=== PATIENT | male | born 1955 | race Caucasian/White ===

== ENCOUNTER 2024-02-05 09:04 | Emergency (ER) | payer SELFPAY ==
[~2024-02-05] VITALS: Ht 172.7 cm; Wt 78.0 kg
[2024-02-05 09:21] VITALS: BP 124/88; PULSE 76; RESP 16; TEMP 98.3; O2SAT 98
[2024-02-05] MEDS: GABAPENTIN 300 MG CAPSULE PO ONE (09:39)
[2024-02-05] MEDS: ACETAMINOPHEN 500 MG TABLET PO ONE (09:39)
[2024-02-05 09:58] LABS: COVID AG,FIA SOURCE NASAL SWAB
[2024-02-05 10:01] LABS: BASOPHILS % (AUTO) 0.8 % (0.0-2.0); EOSINOPHILS % (AUTO) 3.8 % (1.0-6.0); HEMATOCRIT 40.4 % (41-53); LYMPHOCYTES # (AUTO) 2.5 K/uL (1.0-4.8); LYMPHOCYTES % (AUTO) 25.9 % (22.0-44.0); MEAN CORPUSCULAR HEMOGLOBIN 28.7 pg (26.0-34.0); MEAN CORPUSCULAR HGB CONC 32.2 G/dL (31.0-37.0); MEAN CORPUSCULAR VOLUME 89 fL (80-100); MONOCYTES # (AUTO) 1.7 K/uL (0.1-1.0); MONOCYTES % (AUTO) 17.1 % (2.0-9.0); NEUTROPHILS # (AUTO) 5.1 K/uL (1.8-7.7); NEUTROPHILS % (AUTO) 52.4 % (40.0-70.0); PLATELET COUNT (AUTO) 402 K/uL (150-450); RED BLOOD CELL COUNT(AUTO) 4.53 MIL/uL (4.50-5.90); RED CELL DISTRIBUTION WIDTH 15.7 % (11.5-14.5); WHITE BLOOD COUNT (AUTO) 9.8 K/uL (4.5-11.0)
[2024-02-05 10:07] LABS: ANION GAP 7 mmol/L (8-16); CALCIUM, TOTAL 8.4 mg/dL (8.8-10.5); CARBON DIOXIDE 30 mmol/L (22-29); CHLORIDE 104 mmol/L (98-107); CREATININE 1.03 mg/dL (0.60-1.30); GLOMERULAR FILTR. RATE CALC > 60 mL/min (>60); GLUCOSE,RANDOM 85 mg/dL (70-110); POTASSIUM 4.2 mmol/L (3.5-5.1); SODIUM SERUM 141 mmol/L (136-145); UREA NITROGEN, BLOOD 21 mg/dL (7-18)
[2024-02-05 10:15] LABS: ALCOHOL, BLOOD (SERUM) < 3 mg/dL (0-10)
[2024-02-05 10:19] LABS: SARS-COV2 (COVID) ANTIGEN,FIA Negative (Negative)
[2024-02-06] MEDS ORDERED: TAMS0.4C94 PO (19:39)
[2024-02-06] MEDS ORDERED: QUET25TA36 PO (19:39)
[2024-02-06] MEDS ORDERED: MELA1TAB28 PO (19:39)
[2024-02-06] MEDS ORDERED: OS500 PO (19:39)
[2024-02-06] MEDS ORDERED: DOCU-412 PO (19:39)
[2024-02-06] MEDS ORDERED: FOLI-130 PO (19:39)
[2024-02-06] MEDS ORDERED: THIA100T80 PO (19:39)
[2024-02-06] MEDS ORDERED: ATOR40TA71 PO (19:39)
[2024-02-06] MEDS ORDERED: SENN-376 PO (19:39)
[2024-02-06] MEDS ORDERED: GABA-1181 PO (19:39)
[2024-02-06] MEDS ORDERED: AMLO10TA55 PO (19:39)
[2024-02-06] MEDS ORDERED: QUET25TA PO (19:39)
[2024-02-06] MEDS ORDERED: METO-408 PO (19:39)
[2024-02-06] MEDS ORDERED: MULT-248 PO (19:39)
== END 2024-02-05 12:03 ==
LOC: EMS 09:04
DX: F20.9 Schizophrenia, unspecified (principal); E11.9 Type 2 diabetes mellitus without complications; F10.20 Alcohol dependence, uncomplicated; I11.0 Hypertensive heart disease with heart failure; Z20.822 Contact with and (suspected) exposure to COVID-19
CPT/HCPCS: 99283; 87426; 80048; 85025; 36415; G0480

== ENCOUNTER 2024-02-06 18:15 | Inpatient (IN) | payer MEDICARE, MEDICAID ==
[~2024-02-06] VITALS: Ht 162.6 cm; Wt 73.6 kg
[2024-02-06] MEDS ORDERED: ATOR40TA71 PO (19:39)
[2024-02-06] MEDS ORDERED: TAMS0.4C94 PO (19:39)
[2024-02-06] MEDS ORDERED: MULT-248 PO (19:39)
[2024-02-06] MEDS ORDERED: METO-408 PO (19:39)
[2024-02-06] MEDS ORDERED: FOLI-130 PO (19:39)
[2024-02-06] MEDS ORDERED: QUET25TA36 PO (19:39)
[2024-02-06] MEDS ORDERED: DOCU-412 PO (19:39)
[2024-02-06] MEDS ORDERED: QUET25TA PO (19:39)
[2024-02-06] MEDS ORDERED: AMLO10TA55 PO (19:39)
[2024-02-06] MEDS ORDERED: OS500 PO (19:39)
[2024-02-06] MEDS ORDERED: GABA-1181 PO (19:39)
[2024-02-06] MEDS ORDERED: THIA100T80 PO (19:39)
[2024-02-06] MEDS ORDERED: SENN-376 PO (19:39)
[2024-02-06] MEDS ORDERED: MELA1TAB28 PO (19:39)
[2024-02-06 20:04] LABS: BASOPHILS % (AUTO) 0.5 % (0.0-2.0); EOSINOPHILS % (AUTO) 3.2 % (1.0-6.0); HEMATOCRIT 38.1 % (41-53); HEMOGLOBIN 12.2 g/dL (13.5-17.5); LYMPHOCYTES # (AUTO) 2.4 K/uL (1.0-4.8); LYMPHOCYTES % (AUTO) 22.3 % (22.0-44.0); MEAN CORPUSCULAR HEMOGLOBIN 28.4 pg (26.0-34.0); MEAN CORPUSCULAR VOLUME 89 fL (80-100); MONOCYTES # (AUTO) 1.1 K/uL (0.1-1.0); MONOCYTES % (AUTO) 10.1 % (2.0-9.0); NEUTROPHILS # (AUTO) 6.8 K/uL (1.8-7.7); NEUTROPHILS % (AUTO) 63.9 % (40.0-70.0); PLATELET COUNT (AUTO) 345 K/uL (150-450); RED BLOOD CELL COUNT(AUTO) 4.29 MIL/uL (4.50-5.90); RED CELL DISTRIBUTION WIDTH 15.8 % (11.5-14.5); WHITE BLOOD COUNT (AUTO) 10.6 K/uL (4.5-11.0)
[2024-02-06 20:15] LABS: ANION GAP 7 mmol/L (8-16); CALCIUM, TOTAL 8.3 mg/dL (8.8-10.5); CARBON DIOXIDE 29 mmol/L (22-29); CHLORIDE 106 mmol/L (98-107); CREATININE 0.84 mg/dL (0.60-1.30); GLOMERULAR FILTR. RATE CALC > 60 mL/min (>60); GLUCOSE,RANDOM 122 mg/dL (70-110); POTASSIUM 4.2 mmol/L (3.5-5.1); SODIUM SERUM 141 mmol/L (136-145); UREA NITROGEN, BLOOD 18 mg/dL (7-18)
[2024-02-06 20:20] LABS: ALCOHOL, BLOOD (SERUM) < 3 mg/dL (0-10)
[2024-02-06 23:01] LABS: COVID AG,FIA SOURCE NASAL SWAB
[2024-02-06 23:30] LABS: SARS-COV2 (COVID) ANTIGEN,FIA Negative (Negative)
[2024-02-06 23:41] LABS: AMPHET/METH SCREEN,URINE NEGATIVE (NEGATIVE); BARBITURATE SCREEN, URINE NEGATIVE (NEGATIVE); BENZODIAZEPINES SCREEN,URINE NEGATIVE (NEGATIVE); CANNABINOID SCREEN,URINE NEGATIVE (NEGATIVE); COCAINE SCREEN,URINE NEGATIVE (NEGATIVE); METHADONE SCREEN, URINE NEGATIVE (NEGATIVE); OPIATE SCREEN,URINE NEGATIVE (NEGATIVE); PHENCYCLIDINE SCREEN,URINE NEGATIVE (NEGATIVE)
[2024-02-06 23:43] LABS: ALCOHOL, URINE DRUG SCREEN NEGATIVE (NEGATIVE)
[2024-02-07] MEDS ORDERED: MAG HYDROX/ALUMINUM HYD/SIMETH ES 30 ML SUSPENSION UDCUP PO PRN (01:30)
[2024-02-07] MEDS ORDERED: PROMETHAZINE HCL 25 MG TABLET PO PRN (01:30)
[2024-02-07] MEDS ORDERED: ACETAMINOPHEN 325 MG TABLET PO PRN (01:30)
[2024-02-07] MEDS ORDERED: GuaiFENesin/D-METHORPHAN [SUGAR-FREE] 200-20MG/10 ML SYRUP UDCUP PO PRN (01:30)
[2024-02-07] MEDS ORDERED: MAGNESIUM HYDROXIDE SUSPENSION 30 ML UDCUP PO PRN (01:30)
[2024-02-07] MEDS ORDERED: LOPERAMIDE HCL 2 MG CAPSULE PO PRN (01:30)
[2024-02-07] MEDS ORDERED: QUEtiapine FUMARATE 100 MG TABLET PO PRN (01:30)
[2024-02-07] MEDS: ZOLPIDEM TARTRATE 10 MG TABLET PO PRN (02:30)
[2024-02-07] MEDS: LORazepam 1 MG TABLET PO PRN (02:30)
[2024-02-07] MEDS: MULTIVITAMINS WITH MINERALS, THERAPEUTIC TABLET PO SCH (09:53)
[2024-02-07] MEDS: FOLIC ACID 1 MG TABLET PO SCH (09:53)
[2024-02-07] MEDS: THIAMINE 100 MG TABLET PO SCH (09:53)
[2024-02-07 14:13] VITALS: O2SAT 96
[2024-02-07] MEDS: TUBERCULIN, PURIFIED PROTEIN DERIVATIVE 5 TU/0.1 ML SYRINGE ID ONE (16:00)
[2024-02-07 20:30] LABS: GLUCOMETER DEV NAME(LOC) BV2X.3; GLUCOSE,POINT OF CARE 108 MG/DL (70-110)
[2024-02-07] MEDS: BREXPIPRAZOLE 0.25 MG TABLET PO SCH (20:44)
[2024-02-07] MEDS ORDERED: BREXPIPRAZOLE 0.25 MG TABLET PO SCH (21:00)
[2024-02-08 09:21] LABS: HEMOGLOBIN A1C 5.3 % (3.8-5.6)
[2024-02-08 09:28] LABS: CHOL/HDL RATIO 2.2 (4.2-7.3); THYROID STIMULATING HORMONE 4.34 uIU/mL (0.36-3.74)
[2024-02-08 20:15] VITALS: BP 132/80; PULSE 72; RESP 18; TEMP 97.4; O2SAT 95
[2024-02-08] MEDS ORDERED: DOCUSATE SODIUM 250 MG CAPSULE PO PRN (23:30)
[2024-02-08] MEDS ORDERED: SENNOSIDES 8.6 MG TABLET PO PRN (23:30)
[2024-02-09 02:04] VITALS: BP 123/75; PULSE 78; RESP 18; TEMP 95.8; O2SAT 94
[2024-02-09] MEDS: HydrOXYzine PAMOATE 50 MG CAPSULE PO PRN (02:16)
[2024-02-09] MEDS: FOLIC ACID 1 MG TABLET PO SCH (08:17)
[2024-02-09] MEDS: AmLODIPine BESYLATE 10 MG TABLET PO SCH (08:17)
[2024-02-09] MEDS: DIVALPROEX SODIUM 500 MG ER TABLET PO SCH (08:17)
[2024-02-09] MEDS: CALCIUM [CALCIUM CARB 1250MG] 500 MG TABLET PO SCH (08:17)
[2024-02-09] MEDS: MODAFINIL 100 MG TABLET PO SCH (08:17)
[2024-02-09] MEDS: ATORVASTATIN CALCIUM 40 MG TABLET PO SCH (08:18)
[2024-02-09] MEDS: THIAMINE 100 MG TABLET PO SCH (08:18)
[2024-02-09] MEDS: METOPROLOL SUCCINATE 25 MG ER TABLET PO SCH (08:18)
[2024-02-09] MEDS: ETHYL ALCOHOL 62% ANTISEPTIC NASAL SANITIZER 0.6 ML AMPUL NASAL SCH (20:55)
[2024-02-09] MEDS: TAMSULOSIN HCL 0.4 MG CAPSULE PO SCH (20:55)
[2024-02-09] MEDS: CHLORHEXIDINE GLUCONATE 2% TOWELETTE [2'S/6'S] TP SCH (21:07)
[2024-02-09 21:30] VITALS: RESP 18
[2024-02-10] MEDS: INFLUENZA VIRUS VACCINE TVS (6MO+) 2024-25/PF 45 MCG/0.5 ML SYRINGE IM. ONE (13:43)
[2024-02-10] MEDS: PNEUMOCOCCAL VACCINE POLYVALENT 0.5 ML SYRINGE [PPSV23] IM. ONE (13:44)
[2024-02-10 20:46] VITALS: BP 140/87; PULSE 85; RESP 19; TEMP 97.7; O2SAT 98
[2024-02-11 09:24] VITALS: BP 129/80; PULSE 72; RESP 18; TEMP 97.6; O2SAT 96
[2024-02-11 20:03] VITALS: BP 115/76; PULSE 74; RESP 18; TEMP 96.8; O2SAT 95
[2024-02-12 08:03] VITALS: BP 108/84; PULSE 90; RESP 18; TEMP 98.1; O2SAT 98
[2024-02-12 20:00] VITALS: BP 116/76; PULSE 76; RESP 18; TEMP 98.1; O2SAT 98
[2024-02-13 08:01] VITALS: RESP 16
[2024-02-13 09:39] LABS: FREE T4 (FREE THYROXINE) 1.05 ng/dL (0.76-1.46); THYROID STIMULATING HORMONE 3.31 uIU/mL (0.36-3.74)
[2024-02-13] MEDS ORDERED: MELA5TAB40 PO (16:47)
[2024-02-13] MEDS ORDERED: DIVA-153 PO (16:47)
[2024-02-13] MEDS ORDERED: MODA100T65 PO (16:47)
[2024-02-13] MEDS ORDERED: BREX0.25 PO (16:47)
[2024-02-13 20:01] VITALS: BP 135/88; PULSE 80; RESP 16; TEMP 98.6; O2SAT 100
[2024-02-14 08:22] VITALS: BP 135/73; PULSE 90; RESP 18; TEMP 97.9; O2SAT 100
[2024-02-14 20:09] VITALS: BP 124/77; PULSE 84; RESP 18; TEMP 97.9; O2SAT 95
[2024-02-15] MEDS: MELATONIN 5 MG TABLET PO PRN (02:06)
[2024-02-15 08:14] VITALS: BP 133/85; PULSE 96; RESP 16; TEMP 97.4; O2SAT 97
[2024-02-15] MEDS ORDERED: ATOR40TA28 PO (09:03)
[2024-02-15] MEDS ORDERED: AMLO-258 PO (09:03)
[2024-02-15] MEDS ORDERED: METO25XL PO (09:04)
[2024-02-15] MEDS ORDERED: TAMS0.4C94 PO (09:05)
== END 2024-02-15 11:40 | DRG 885 ==
LOC: EMS 18:15 → B2X 02-07 15:16
PROVIDERS: ADMIT Psychiatry & Neurology Psychiatry; ATTEND Psychiatry & Neurology Psychiatry
PROC: GZHZZZZ Group Psychotherapy (ICD-10-PCS; principal; 2024-02-08)
PROC: GZ58ZZZ Individual Psychotherapy, Cognitive-Behavioral (ICD-10-PCS; 2024-02-08)
DX: F25.0 Schizoaffective disorder, bipolar type (principal); I11.0 Hypertensive heart disease with heart failure; I62.00 Nontraumatic subdural hemorrhage, unspecified; E51.2 Wernicke's encephalopathy; F17.200 Nicotine dependence, unspecified, uncomplicated; E11.9 Type 2 diabetes mellitus without complications; Z20.822 Contact with and (suspected) exposure to COVID-19; I25.2 Old myocardial infarction; I50.9 Heart failure, unspecified; E03.9 Hypothyroidism, unspecified; D64.9 Anemia, unspecified; F10.20 Alcohol dependence, uncomplicated; E78.00 Pure hypercholesterolemia, unspecified; N40.0 Benign prostatic hyperplasia without lower urinary tract symptoms
CPT/HCPCS: 80048; 80061; 80164; 80307; 82962; 83036; 84439; 84443; 85025; 86592; 87081; 87481; 99285; G0480

== ENCOUNTER 2024-03-07 00:45 | Emergency (ER) | payer MEDICARE, MEDICAID ==
[~2024-03-07] VITALS: Ht 170.2 cm; Wt 75.0 kg
[~2024-03-07 00:45] MED LIST: AMLO-258 PO; ATOR40TA28 PO; BREX0.25 PO; DIVA-153 PO; MELA5TAB40 PO; METO25XL PO; MODA100T65 PO; OS500 PO; TAMS0.4C94 PO
[2024-03-07 02:04] VITALS: TEMP 98.3
[2024-03-07] MEDS: LORazepam 1 MG TABLET PO ONE ×2 (03:30→04:34)
[2024-03-07 07:22] VITALS: BP 128/74; PULSE 75; RESP 16; O2SAT 97
== END 2024-03-07 08:41 ==
LOC: EMS 00:46
DX: Z04.3 Encounter for examination and observation following other accident (principal); E11.9 Type 2 diabetes mellitus without complications; I11.0 Hypertensive heart disease with heart failure; I50.9 Heart failure, unspecified; R51.9 Headache, unspecified; E78.00 Pure hypercholesterolemia, unspecified; F20.9 Schizophrenia, unspecified; Z79.899 Other long term (current) drug therapy; W19.XXXA Unspecified fall, initial encounter; Y93.89 Activity, other specified; Y92.89 Other specified places as the place of occurrence of the external cause; Y99.8 Other external cause status
CPT/HCPCS: 70450; 72125; 99285

== ENCOUNTER 2024-03-14 18:37 | Inpatient (IN) | payer MEDICARE, MEDICAID ==
[~2024-03-14] VITALS: Ht 170.2 cm; Wt 75.0 kg
[2024-03-14 19:22] LABS: BASOPHILS % (AUTO) 0.6 % (0.0-2.0); EOSINOPHILS % (AUTO) 0.9 % (1.0-6.0); HEMATOCRIT 42.5 % (41-53); HEMOGLOBIN 13.5 g/dL (13.5-17.5); LYMPHOCYTES # (AUTO) 2.5 K/uL (1.0-4.8); LYMPHOCYTES % (AUTO) 21.8 % (22.0-44.0); MEAN CORPUSCULAR HEMOGLOBIN 27.8 pg (26.0-34.0); MEAN CORPUSCULAR HGB CONC 31.7 G/dL (31.0-37.0); MEAN CORPUSCULAR VOLUME 88 fL (80-100); MONOCYTES # (AUTO) 1.8 K/uL (0.1-1.0); MONOCYTES % (AUTO) 16.2 % (2.0-9.0); NEUTROPHILS # (AUTO) 6.9 K/uL (1.8-7.7); NEUTROPHILS % (AUTO) 60.5 % (40.0-70.0); PLATELET COUNT (AUTO) 294 K/uL (150-450); RED BLOOD CELL COUNT(AUTO) 4.85 MIL/uL (4.50-5.90); RED CELL DISTRIBUTION WIDTH 17.9 % (11.5-14.5); WHITE BLOOD COUNT (AUTO) 11.3 K/uL (4.5-11.0)
[2024-03-14 19:37] LABS: LACTIC ACID 0.7 mmol/L (0.4-2.0)
[2024-03-14 19:43] LABS: ANION GAP 11 mmol/L (8-16); CARBON DIOXIDE 28 mmol/L (22-29); CHLORIDE 100 mmol/L (98-107); CREATININE 1.15 mg/dL (0.60-1.30); GLOMERULAR FILTR. RATE CALC > 60 mL/min (>60); GLUCOSE,RANDOM 89 mg/dL (70-110); POTASSIUM 4.2 mmol/L (3.5-5.1); SODIUM SERUM 139 mmol/L (136-145); UREA NITROGEN, BLOOD 15 mg/dL (7-18)
[2024-03-14 20:00] LABS: APPEARANCE,URINE CLEAR (CLEAR); BILIRUBIN,URINE NEGATIVE (NEGATIVE); COLOR,URINE YELLOW (YELLOW); GLUCOSE, URINE (UA) NEGATIVE (NEGATIVE); LEUKOCYTE ESTERASE ,URINE NEGATIVE (NEGATIVE); NITRATE,URINE NEGATIVE (NEGATIVE); OCCULT BLOOD,URINE NEGATIVE (NEGATIVE); PH,URINE 7.5 (5.0-8.0); PH,URINE DRUG SCREEN 7.5 (5.0-8.0); PROTEIN,URINE NEGATIVE (NEGATIVE); SPECIFIC GRAVITIY, URINE 1.014 (1.003-1.030); UROBILINOGEN,URINE <=1.0 mg/dL (<=1.0)
[2024-03-14 20:00] LABS: PROTHROMBIN TIME 11.3 SEC (9.4-11.6)
[2024-03-14 20:01] LABS: ALCOHOL, URINE DRUG SCREEN NEGATIVE (NEGATIVE); AMPHET/METH SCREEN,URINE NEGATIVE (NEGATIVE); BARBITURATE SCREEN, URINE NEGATIVE (NEGATIVE); BENZODIAZEPINES SCREEN,URINE NEGATIVE (NEGATIVE); CANNABINOID SCREEN,URINE NEGATIVE (NEGATIVE); COCAINE SCREEN,URINE NEGATIVE (NEGATIVE); METHADONE SCREEN, URINE NEGATIVE (NEGATIVE); OPIATE SCREEN,URINE NEGATIVE (NEGATIVE); PHENCYCLIDINE SCREEN,URINE NEGATIVE (NEGATIVE)
[2024-03-14 20:02] LABS: ALANINE AMINOTRANSFERASE 36 U/L (12-78); ALKALINE PHOSPHATASE 80 U/L (46-116); ASPARTATE AMINOTRANSFERASE 29 U/L (15-37); BILIRUBIN,TOTAL 0.4 mg/dL (0.1-1.0); CREATINE KINASE, TOTAL ONLY 125 U/L (39-308); TOTAL PROTEIN, SERUM 7.2 g/dL (6.4-8.2); VALPROIC ACID 93 mcg/mL (50-100)
[2024-03-14 20:05] LABS: TROPONIN I-HIGH SENSITIVITY 5 ng/L (<76)
[2024-03-14] MEDS: MAGNESIUM SULFATE 2 GM, MVI, ADULT NO.1 WITH VIT K 10 ML, THIAMINE 100 MG, FOLIC ACID 1... IV ONE (21:07)
[2024-03-15] MEDS ORDERED: BISACODYL 10 MG RECTAL RECTAL SUPPOSITORY PR PRN (05:45)
[2024-03-15] MEDS ORDERED: IPRATROPIUM BROMIDE 0.5 MG/2.5 ML NEB SOLUTION NEB PRN (05:45)
[2024-03-15] MEDS ORDERED: ACETAMINOPHEN 325 MG TABLET PO PRN (05:45)
[2024-03-15] MEDS ORDERED: ALBUTEROL SULFATE 2.5 MG/0.5 ML NEB SOLUTION NEB PRN (05:45)
[2024-03-15] MEDS ORDERED: ZOLPIDEM TARTRATE 5 MG TABLET PO PRN (05:45)
[2024-03-15] MEDS ORDERED: MORPHINE SULFATE 2 MG/ML SYRINGE IVP PRN (05:45)
[2024-03-15] MEDS ORDERED: HYDROCODONE/ACETAMINOPHEN 5-325 MG TABLET PO PRN (05:45)
[2024-03-15] MEDS ORDERED: ONDANSETRON HCL 4 MG/2 ML VIAL IVP PRN (05:45)
[2024-03-15 07:25] LABS: GLUCOMETER DEV NAME(LOC) ER.7; GLUCOSE,POINT OF CARE 69 MG/DL (70-110)
[2024-03-15] MEDS: HEPARIN SODIUM,PORCINE 5,000 UNITS/ML VIAL SQ SCH (08:00)
[2024-03-15] MEDS: DIVALPROEX SODIUM 500 MG ER TABLET PO SCH (09:00)
[2024-03-15] MEDS: CALCIUM [CALCIUM CARB 1250MG] 500 MG TABLET PO SCH (09:00)
[2024-03-15 09:41] VITALS: BP 124/56; PULSE 72; RESP 19; TEMP 98.2; O2SAT 97
[2024-03-15 11:57] LABS: ANION GAP 8 mmol/L (8-16); CARBON DIOXIDE 29 mmol/L (22-29); CHLORIDE 103 mmol/L (98-107); CREATININE 0.85 mg/dL (0.60-1.30); GLOMERULAR FILTR. RATE CALC > 60 mL/min (>60); GLUCOSE,RANDOM 90 mg/dL (70-110); POTASSIUM 3.6 mmol/L (3.5-5.1); SODIUM SERUM 140 mmol/L (136-145); UREA NITROGEN, BLOOD 14 mg/dL (7-18)
[2024-03-15 12:01] LABS: HEMOGLOBIN 13.9 g/dL (13.5-17.5); MEAN CORPUSCULAR HEMOGLOBIN 28.2 pg (26.0-34.0); MEAN CORPUSCULAR HGB CONC 32.3 G/dL (31.0-37.0); MEAN CORPUSCULAR VOLUME 88 fL (80-100); PLATELET COUNT (AUTO) 302 K/uL (150-450); RED BLOOD CELL COUNT(AUTO) 4.91 MIL/uL (4.50-5.90); RED CELL DISTRIBUTION WIDTH 17.7 % (11.5-14.5)
[2024-03-15 12:03] LABS: ALANINE AMINOTRANSFERASE 36 U/L (12-78); ALKALINE PHOSPHATASE 78 U/L (46-116); ASPARTATE AMINOTRANSFERASE 29 U/L (15-37); BILIRUBIN,TOTAL 0.3 mg/dL (0.1-1.0)
[2024-03-15 12:18] LABS: BAND NEUTROPHILS % (MANUAL) 0 % (0-5)
[2024-03-15] MEDS: ATORVASTATIN CALCIUM 40 MG TABLET PO SCH (12:39)
[2024-03-15] MEDS: AmLODIPine BESYLATE 10 MG TABLET PO SCH (12:39)
[2024-03-15] MEDS: PANTOPRAZOLE SODIUM 40 MG DR TABLET PO SCH (12:39)
[2024-03-15] MEDS: METOPROLOL SUCCINATE 25 MG ER TABLET PO SCH (12:40)
[2024-03-15 13:04] LABS: LYMPHOCYTES % (MANUAL) 29 % (22-44); MONOCYTES % (MANUAL) 21 % (2-9); SEGMENTED NEUTROPHILS % 50 % (40-70); TOTAL CELLS COUNTED 100
[2024-03-15 13:10] LABS: GLUCOMETER DEV NAME(LOC) 6N.1B; GLUCOSE,POINT OF CARE 87 MG/DL (70-110)
[2024-03-15 17:42] VITALS: BP 130/61; PULSE 75; RESP 18; TEMP 98; O2SAT 98
[2024-03-15 18:01] LABS: GLUCOMETER DEV NAME(LOC) 6N.2B; GLUCOSE,POINT OF CARE 91 MG/DL (70-110)
[2024-03-15 19:38] VITALS: BP 142/79; PULSE 76; RESP 14; TEMP 98; O2SAT 98
[2024-03-15] MEDS: TAMSULOSIN HCL 0.4 MG CAPSULE PO SCH (20:10)
[2024-03-15] MEDS: BREXPIPRAZOLE 0.25 MG TABLET PO SCH (20:10)
[2024-03-15] MEDS: MELATONIN 5 MG TABLET PO PRN (23:00)
[2024-03-16] MEDS: LORazepam 2 MG/ML VIAL IVP PRN (00:14)
[2024-03-16 02:26] LABS: GLUCOMETER DEV NAME(LOC) 6N.2B; GLUCOSE,POINT OF CARE 91 MG/DL (70-110)
[2024-03-16 03:50] VITALS: BP 142/89; PULSE 91; RESP 16; TEMP 97.8; O2SAT 95
[2024-03-16 07:08] VITALS: BP 147/103; PULSE 83; RESP 18; TEMP 98.4; O2SAT 96
[2024-03-16 14:31] LABS: GLUCOMETER DEV NAME(LOC) 6N.1B; GLUCOSE,POINT OF CARE 68 MG/DL (70-110)
[2024-03-16] MEDS: DEXTROSE 5%-0.45% SODIUM CHL 1,000 ML IV SCH (15:15)
[2024-03-16 15:43] VITALS: BP 119/93; PULSE 82; RESP 18; TEMP 97.6; O2SAT 96
[2024-03-16 21:20] VITALS: BP 128/68; PULSE 76; RESP 17; TEMP 97.5; O2SAT 95
[2024-03-17 05:12] VITALS: BP 137/87; PULSE 79; RESP 18; TEMP 98.3; O2SAT 99
[2024-03-17 08:35] VITALS: BP 131/97; PULSE 83; RESP 20; TEMP 98.4; O2SAT 96
[2024-03-17 18:42] VITALS: BP 128/70; PULSE 80; RESP 20; TEMP 98.1; O2SAT 94
[2024-03-17 20:33] VITALS: BP 140/94; PULSE 76; RESP 20; TEMP 98.1; O2SAT 95
[2024-03-18 05:05] VITALS: BP 123/67; PULSE 92; RESP 20; TEMP 97.9; O2SAT 99
[2024-03-18 11:31] LABS: BASOPHILS % (AUTO) 0.5 % (0.0-2.0); HEMATOCRIT 42.3 % (41-53); HEMOGLOBIN 13.9 g/dL (13.5-17.5); LYMPHOCYTES # (AUTO) 3.1 K/uL (1.0-4.8); MEAN CORPUSCULAR HEMOGLOBIN 28.5 pg (26.0-34.0); MEAN CORPUSCULAR HGB CONC 32.7 G/dL (31.0-37.0); MEAN CORPUSCULAR VOLUME 87 fL (80-100); MONOCYTES # (AUTO) 1.4 K/uL (0.1-1.0); MONOCYTES % (AUTO) 16.7 % (2.0-9.0); NEUTROPHILS # (AUTO) 3.9 K/uL (1.8-7.7); NEUTROPHILS % (AUTO) 44.8 % (40.0-70.0); PLATELET COUNT (AUTO) 296 K/uL (150-450); RED BLOOD CELL COUNT(AUTO) 4.87 MIL/uL (4.50-5.90); RED CELL DISTRIBUTION WIDTH 17.6 % (11.5-14.5); WHITE BLOOD COUNT (AUTO) 8.7 K/uL (4.5-11.0)
[2024-03-18 11:41] LABS: ANION GAP 8 mmol/L (8-16); CALCIUM, TOTAL 8.7 mg/dL (8.8-10.5); CARBON DIOXIDE 27 mmol/L (22-29); CHLORIDE 104 mmol/L (98-107); CREATININE 0.93 mg/dL (0.60-1.30); GLOMERULAR FILTR. RATE CALC > 60 mL/min (>60); GLUCOSE,RANDOM 97 mg/dL (70-110); POTASSIUM 3.7 mmol/L (3.5-5.1); SODIUM SERUM 139 mmol/L (136-145); UREA NITROGEN, BLOOD 11 mg/dL (7-18)
[2024-03-18 11:47] LABS: ALANINE AMINOTRANSFERASE 38 U/L (12-78); ALBUMIN 2.9 g/dL (3.4-5.0); ALKALINE PHOSPHATASE 74 U/L (46-116); ASPARTATE AMINOTRANSFERASE 27 U/L (15-37); BILIRUBIN,TOTAL 0.3 mg/dL (0.1-1.0); TOTAL PROTEIN, SERUM 6.9 g/dL (6.4-8.2)
[2024-03-18 19:28] VITALS: BP 108/91; PULSE 75; RESP 18; TEMP 98.4; O2SAT 98
[2024-03-19 03:39] VITALS: BP 116/77; PULSE 76; RESP 18; TEMP 98.5; O2SAT 97
[2024-03-19 08:16] VITALS: BP 128/88; PULSE 88; RESP 17; TEMP 98.3; O2SAT 96
[2024-03-19] MEDS: ARIPiprazole 5 MG TABLET PO SCH (13:22)
[2024-03-19 14:23] VITALS: BP 125/87; PULSE 81; RESP 18; TEMP 98.7; O2SAT 97
[2024-03-19 17:33] VITALS: RESP 18
[2024-03-19 20:45] VITALS: BP 141/94; PULSE 65; RESP 20; O2SAT 100
[2024-03-20 04:30] VITALS: BP 125/77; PULSE 78; RESP 20; TEMP 97.8; O2SAT 96
[2024-03-20 07:46] VITALS: BP 100/51; PULSE 65; RESP 18; TEMP 98.2; O2SAT 99
[2024-03-20 16:16] VITALS: BP 119/73; PULSE 63; RESP 18; TEMP 98.3; O2SAT 97
[2024-03-20 19:30] VITALS: BP 117/80; PULSE 79; RESP 18; TEMP 98.4; O2SAT 98
[2024-03-21 04:00] VITALS: BP 120/84; PULSE 85; RESP 18; TEMP 97.7; O2SAT 96
[2024-03-21 08:38] VITALS: BP 136/88; PULSE 97; RESP 18; TEMP 98.3; O2SAT 92
[2024-03-21 16:02] VITALS: BP 122/89; PULSE 79; RESP 17; TEMP 98.2; O2SAT 98
[2024-03-21 19:20] VITALS: BP 141/86; PULSE 76; RESP 18; TEMP 98.2; O2SAT 97
[2024-03-22 05:00] VITALS: BP 141/91; PULSE 82; RESP 19; TEMP 98.1; O2SAT 97
[2024-03-22 08:14] VITALS: BP 136/98; PULSE 84; RESP 20; TEMP 97.7; O2SAT 96
[2024-03-22] MEDS: MAGNESIUM HYDROXIDE SUSPENSION 30 ML UDCUP PO PRN (15:41)
[2024-03-22] MEDS ORDERED: ARIP5TAB37 PO (19:42)
[2024-03-22] MEDS ORDERED: PANT-31 PO (19:43)
[2024-03-22] MEDS ORDERED: BISA10SU11 PR (19:44)
[2024-03-22] MEDS ORDERED: ACET-2247 PO (19:44)
[2024-03-22] MEDS ORDERED: ZOLP-280 PO (19:46)
[2024-03-22] MEDS ORDERED: MAGN-169 PO (19:46)
[2024-03-22 20:44] VITALS: BP 127/86; PULSE 76; RESP 19; TEMP 98; O2SAT 97
[2024-03-22 23:22] LABS: COVID AG,FIA SOURCE NASAL SWAB
[2024-03-22 23:46] LABS: SARS-COV2 (COVID) ANTIGEN,FIA Negative (Negative)
== END 2024-03-23 00:45 | DRG 71 ==
LOC: EMS 18:37 → EDH 03-15 05:58 → 6S 03-15 09:09
PROVIDERS: ADMIT Hospitalist; ATTEND Hospitalist
PROC: GZ52ZZZ Individual Psychotherapy, Cognitive (ICD-10-PCS; principal; 2024-03-20)
DX: G93.40 Encephalopathy, unspecified (principal); E44.0 Moderate protein-calorie malnutrition; F20.0 Paranoid schizophrenia; F99 Mental disorder, not otherwise specified; Z20.822 Contact with and (suspected) exposure to COVID-19; D72.829 Elevated white blood cell count, unspecified; N40.0 Benign prostatic hyperplasia without lower urinary tract symptoms; I11.0 Hypertensive heart disease with heart failure; E11.9 Type 2 diabetes mellitus without complications; E78.00 Pure hypercholesterolemia, unspecified; E86.0 Dehydration; F10.20 Alcohol dependence, uncomplicated; Z79.899 Other long term (current) drug therapy; Z68.25 Body mass index [BMI] 25.0-25.9, adult; I50.9 Heart failure, unspecified
CPT/HCPCS: 51702; 70450; 71045; 80048; 80053; 80076; 80164; 80307; 81003; 82140; 82550; 82962; 83605; 84484; 85025; 85610; 85730; 87081; 92610; 93005; 93306; 99291; J1644; J2060; J3411; J3475; J3490; J7030; 36415-L1; 36415-TC

== ENCOUNTER 2024-03-21 15:24 | Inpatient (IN) | payer MEDICARE, MEDICAID ==
[~2024-03-21 15:24] MED LIST changes: -MODA100T65 PO
[2024-03-22] MEDS ORDERED: ARIP5TAB37 PO (19:42)
[2024-03-22] MEDS ORDERED: PANT-31 PO (19:43)
[2024-03-22] MEDS ORDERED: ACET-2247 PO (19:44)
[2024-03-22] MEDS ORDERED: BISA10SU11 PR (19:44)
[2024-03-22] MEDS ORDERED: MAGN-169 PO (19:46)
[2024-03-22] MEDS ORDERED: ZOLP-280 PO (19:46)
[2024-03-23] MEDS ORDERED: ZOLPIDEM TARTRATE 10 MG TABLET PO PRN (01:15)
[2024-03-23 02:27] VITALS: BP 111/73; PULSE 89; RESP 16; TEMP 97.2; O2SAT 97
[2024-03-23 10:31] VITALS: BP 105/75; PULSE 79; RESP 19; TEMP 97.5; O2SAT 99
[2024-03-23] MEDS: ARIPiprazole 5 MG TABLET PO SCH (10:56)
[2024-03-23] MEDS: THIAMINE 100 MG TABLET PO SCH (10:57)
[2024-03-23] MEDS: METOPROLOL SUCCINATE 25 MG ER TABLET PO SCH (10:57)
[2024-03-23] MEDS: AmLODIPine BESYLATE 10 MG TABLET PO SCH (10:57)
[2024-03-23] MEDS: FOLIC ACID 1 MG TABLET PO SCH (10:57)
[2024-03-23] MEDS: ATORVASTATIN CALCIUM 40 MG TABLET PO SCH (10:57)
[2024-03-23] MEDS: DIVALPROEX SODIUM 500 MG ER TABLET PO SCH (10:58)
[2024-03-23] MEDS: CALCIUM CARBONATE 500 MG CHEWABLE TABLET CHEW SCH (10:58)
[2024-03-23] MEDS: PANTOPRAZOLE SODIUM 40 MG DR TABLET PO SCH (10:58)
[2024-03-23] MEDS: VALPROIC ACID 250 MG/5 ML SOLUTION UDCUP PO ONE (14:41)
[2024-03-23] MEDS: VALPROIC ACID 250 MG/5 ML SOLUTION UDCUP PO SCH (17:55)
[2024-03-23] MEDS: TAMSULOSIN HCL 0.4 MG CAPSULE PO SCH (21:14)
[2024-03-23] MEDS: HALOPERIDOL 5 MG TABLET PO PRN (21:15)
[2024-03-23] MEDS: LORazepam 2 MG TABLET PO PRN (21:15)
[2024-03-23] MEDS: ZOLPIDEM TARTRATE 5 MG TABLET PO PRN (22:07)
[2024-03-24] MEDS: ARIPiprazole 5 MG TABLET PO SCH (08:45)
[2024-03-24 09:00] VITALS: BP 109/78; PULSE 83; RESP 19; TEMP 97.3; O2SAT 96
[2024-03-24 21:51] VITALS: BP 148/86; PULSE 76; RESP 18; TEMP 97.7; O2SAT 97
[2024-03-25 08:54] VITALS: BP 124/68; PULSE 85; RESP 18; TEMP 97.8; O2SAT 86
[2024-03-25 20:41] VITALS: BP 95/67; PULSE 92; RESP 18; TEMP 97.5; O2SAT 96
[2024-03-26 07:43] LABS: CHOL/HDL RATIO 1.9 (4.2-7.3)
[2024-03-26 08:00] VITALS: BP 108/64; PULSE 92; RESP 19; TEMP 98.2; O2SAT 98
[2024-03-26 22:06] VITALS: RESP 18
[2024-03-27 08:30] VITALS: BP 103/61; PULSE 68; RESP 18; TEMP 97.2
[2024-03-27 20:24] VITALS: BP 96/64; PULSE 70; RESP 20; TEMP 97.3
[2024-03-28 08:30] VITALS: RESP 20
[2024-03-28 10:45] VITALS: BP 124/78; PULSE 79; RESP 20; TEMP 98.2; O2SAT 97
[2024-03-28 23:00] VITALS: BP 93/63; PULSE 64; RESP 19; TEMP 98; O2SAT 98
[2024-03-29 09:00] VITALS: BP 123/78; PULSE 72; RESP 20; TEMP 98; O2SAT 95
[2024-03-29 20:08] VITALS: RESP 18
[2024-03-30 09:04] VITALS: BP 116/79; PULSE 77; RESP 18; TEMP 97.7; O2SAT 98
[2024-03-30 22:29] VITALS: RESP 18
[2024-03-31 14:31] VITALS: BP 126/76; PULSE 80; RESP 18; TEMP 97.8
[2024-03-31 20:58] VITALS: BP 106/66; PULSE 67; RESP 16; TEMP 98
[2024-04-01 08:32] VITALS: RESP 18; TEMP 97.9
[2024-04-01 20:37] VITALS: BP 123/70; PULSE 84; RESP 18; TEMP 97; O2SAT 98
[2024-04-02 09:00] VITALS: BP 112/85; PULSE 81; RESP 18; TEMP 97.6; O2SAT 98
[2024-04-02 20:02] VITALS: BP 162/72; PULSE 67; RESP 18; TEMP 97.2; O2SAT 93
[2024-04-03 08:40] VITALS: BP 118/68; PULSE 60; RESP 17; TEMP 97.8; O2SAT 97
[2024-04-03 21:03] VITALS: RESP 18; TEMP 97.9
[2024-04-04 08:48] VITALS: BP 115/78; PULSE 80; RESP 8; TEMP 97.8; O2SAT 97
[2024-04-04] MEDS: ARIPiprazole 5 MG TABLET PO SCH (17:25)
[2024-04-04 20:24] VITALS: BP 125/53; PULSE 70; RESP 17; TEMP 97.7; O2SAT 93
[2024-04-05 08:53] VITALS: BP 106/60; PULSE 55; RESP 18; TEMP 97.7; O2SAT 96
[2024-04-05 08:56] LABS: BASOPHILS % (AUTO) 1.3 % (0.0-2.0); HEMATOCRIT 45.6 % (41-53); LYMPHOCYTES % (AUTO) 33.8 % (22.0-44.0); MEAN CORPUSCULAR HEMOGLOBIN 29.1 pg (26.0-34.0); MEAN CORPUSCULAR HGB CONC 32.9 G/dL (31.0-37.0); MEAN CORPUSCULAR VOLUME 88 fL (80-100); MONOCYTES # (AUTO) 1.1 K/uL (0.1-1.0); MONOCYTES % (AUTO) 12.7 % (2.0-9.0); NEUTROPHILS # (AUTO) 4.2 K/uL (1.8-7.7); NEUTROPHILS % (AUTO) 47.2 % (40.0-70.0); PLATELET COUNT (AUTO) 215 K/uL (150-450); RED BLOOD CELL COUNT(AUTO) 5.16 MIL/uL (4.50-5.90); RED CELL DISTRIBUTION WIDTH 19.6 % (11.5-14.5)
[2024-04-05 10:18] LABS: ANION GAP 5 mmol/L (8-16); CALCIUM, TOTAL 8.7 mg/dL (8.8-10.5); CARBON DIOXIDE 33 mmol/L (22-29); CHLORIDE 110 mmol/L (98-107); CREATININE 1.13 mg/dL (0.60-1.30); GLOMERULAR FILTR. RATE CALC > 60 mL/min (>60); GLUCOSE,RANDOM 103 mg/dL (70-110); POTASSIUM 4.2 mmol/L (3.5-5.1); SODIUM SERUM 148 mmol/L (136-145); UREA NITROGEN, BLOOD 25 mg/dL (7-18)
[2024-04-05 10:23] LABS: ALANINE AMINOTRANSFERASE 57 U/L (12-78); ALKALINE PHOSPHATASE 68 U/L (46-116); ASPARTATE AMINOTRANSFERASE 38 U/L (15-37); BILIRUBIN,TOTAL 0.4 mg/dL (0.1-1.0)
[2024-04-05 20:21] VITALS: BP 118/76; PULSE 77; RESP 18; TEMP 97.9; O2SAT 98
[2024-04-06 08:51] VITALS: BP 143/80; PULSE 67; RESP 17; TEMP 97.7; O2SAT 97
[2024-04-06 21:01] VITALS: RESP 17
[2024-04-07 09:15] VITALS: BP 145/91; PULSE 67; RESP 17; TEMP 98; O2SAT 95
[2024-04-07 20:24] VITALS: BP 102/51; PULSE 83; RESP 18; TEMP 97.8; O2SAT 96
[2024-04-08 01:04] VITALS: BP 119/67; PULSE 68; RESP 18; TEMP 98.1; O2SAT 99
[2024-04-08] MEDS: ACETAMINOPHEN 325 MG TABLET PO PRN (01:07)
[2024-04-08 02:07] VITALS: BP 118/69; PULSE 67; RESP 18; TEMP 98; O2SAT 98
[2024-04-08 10:44] VITALS: BP 97/67; PULSE 65; RESP 17; TEMP 97.6; O2SAT 95
[2024-04-08 20:58] VITALS: RESP 18; TEMP 97.8
[2024-04-09 08:19] VITALS: BP 111/57; PULSE 65; RESP 18; TEMP 97.4; O2SAT 95
[2024-04-09 10:51] VITALS: BP 115/62; PULSE 80; RESP 19; O2SAT 96
[2024-04-09 13:06] LABS: ANION GAP 5 mmol/L (8-16); CALCIUM, TOTAL 8.2 mg/dL (8.8-10.5); CARBON DIOXIDE 32 mmol/L (22-29); CHLORIDE 109 mmol/L (98-107); CREATININE 1.03 mg/dL (0.60-1.30); GLOMERULAR FILTR. RATE CALC > 60 mL/min (>60); GLUCOSE,RANDOM 94 mg/dL (70-110); POTASSIUM 3.7 mmol/L (3.5-5.1); SODIUM SERUM 146 mmol/L (136-145); UREA NITROGEN, BLOOD 23 mg/dL (7-18)
[2024-04-09 20:21] VITALS: BP 117/62; PULSE 71; RESP 16; TEMP 97.8; O2SAT 97
[2024-04-10 08:57] VITALS: BP 97/56; PULSE 73; RESP 18; TEMP 96.8; O2SAT 95
[2024-04-10 20:10] VITALS: BP 123/63; PULSE 89; RESP 18; TEMP 98.6; O2SAT 97
[2024-04-11 08:49] VITALS: BP 144/78; PULSE 79; RESP 18; TEMP 97.7; O2SAT 97
[2024-04-11 11:37] LABS: ANION GAP 2 mmol/L (8-16); CALCIUM, TOTAL 8.7 mg/dL (8.8-10.5); CARBON DIOXIDE 35 mmol/L (22-29); CHLORIDE 107 mmol/L (98-107); CREATININE 1.19 mg/dL (0.60-1.30); GLOMERULAR FILTR. RATE CALC > 60 mL/min (>60); GLUCOSE,RANDOM 102 mg/dL (70-110); POTASSIUM 4.1 mmol/L (3.5-5.1); SODIUM SERUM 144 mmol/L (136-145); UREA NITROGEN, BLOOD 16 mg/dL (7-18)
[2024-04-11 21:13] VITALS: BP 120/66; PULSE 80; RESP 17; TEMP 98.2; O2SAT 97
[2024-04-12 10:00] VITALS: BP 154/90; PULSE 77; RESP 18; TEMP 97.9; O2SAT 96
[2024-04-12 20:00] VITALS: BP 140/62; PULSE 78; RESP 19; TEMP 98.1; O2SAT 98
[2024-04-13 08:39] VITALS: BP 101/71; PULSE 70; RESP 18; TEMP 97.7; O2SAT 97
[2024-04-13 20:46] VITALS: BP 122/74; PULSE 79; RESP 19; TEMP 97.3; O2SAT 97
[2024-04-14 09:00] VITALS: BP 108/74; PULSE 75; RESP 18; TEMP 97; O2SAT 95
[2024-04-14 20:35] VITALS: BP 130/73; PULSE 81; RESP 19; TEMP 98.2; O2SAT 95
[2024-04-15 08:54] VITALS: BP 98/62; PULSE 76; RESP 18; TEMP 97.7; O2SAT 95
[2024-04-15 10:00] VITALS: BP 120/70; PULSE 96
[2024-04-15 21:00] VITALS: BP 97/52; PULSE 63; RESP 17; TEMP 98; O2SAT 98
[2024-04-16 09:49] VITALS: BP 98/60; PULSE 59; RESP 18; TEMP 97.2; O2SAT 89
[2024-04-16 21:19] VITALS: BP 143/68; PULSE 66; RESP 17; TEMP 97.6; O2SAT 97
[2024-04-16 21:33] VITALS: BP 143/68; PULSE 66; RESP 18; TEMP 97.6; O2SAT 97
[2024-04-17 09:00] VITALS: BP 129/60; PULSE 59; RESP 17; TEMP 97; O2SAT 93
[2024-04-17 20:53] VITALS: BP 127/84; PULSE 68; RESP 18; TEMP 98.1; O2SAT 98
[2024-04-18 09:00] VITALS: BP 114/69; PULSE 77; RESP 18; TEMP 97.4; O2SAT 94
[2024-04-18 20:20] VITALS: BP 119/67; PULSE 83; RESP 18; TEMP 97.9
[2024-04-19 09:34] VITALS: BP 117/64; PULSE 66; RESP 18; TEMP 97.6; O2SAT 95
[2024-04-19 09:36] VITALS: BP 117/64; PULSE 66; RESP 18; TEMP 97.6; O2SAT 97
[2024-04-19 20:15] VITALS: BP 103/67; PULSE 69; RESP 18; TEMP 97.7; O2SAT 95
[2024-04-20 08:12] VITALS: BP 128/54; PULSE 71; RESP 18; TEMP 97.4; O2SAT 95
[2024-04-20 22:17] VITALS: BP 145/72; PULSE 66; RESP 20; TEMP 97.9; O2SAT 98
[2024-04-21 11:48] VITALS: BP 121/68; PULSE 68; RESP 18; TEMP 97.9; O2SAT 97
[2024-04-21 20:06] VITALS: BP 128/75; PULSE 64; RESP 18; TEMP 98.1; O2SAT 98
[2024-04-22 06:26] VITALS: BP 85/58; PULSE 85; RESP 18; TEMP 96.9; O2SAT 95
[2024-04-22 06:28] VITALS: BP 95/58; PULSE 82; RESP 18; TEMP 97.1; O2SAT 95
[2024-04-22 07:04] VITALS: BP 131/72; PULSE 80; RESP 18; TEMP 97.1; O2SAT 97
[2024-04-22 07:10] LABS: GLUCOMETER DEV NAME(LOC) 3EX.2; GLUCOSE,POINT OF CARE 103 MG/DL (70-110)
[2024-04-22 08:45] LABS: BASOPHILS % (AUTO) 0.3 % (0.0-2.0); EOSINOPHILS % (AUTO) 1.2 % (1.0-6.0); HEMOGLOBIN 15.7 g/dL (13.5-17.5); LYMPHOCYTES # (AUTO) 2.2 K/uL (1.0-4.8); LYMPHOCYTES % (AUTO) 15.6 % (22.0-44.0); MEAN CORPUSCULAR HEMOGLOBIN 29.4 pg (26.0-34.0); MEAN CORPUSCULAR HGB CONC 33.3 G/dL (31.0-37.0); MEAN CORPUSCULAR VOLUME 88 fL (80-100); MONOCYTES # (AUTO) 1.8 K/uL (0.1-1.0); MONOCYTES % (AUTO) 12.8 % (2.0-9.0); NEUTROPHILS # (AUTO) 9.9 K/uL (1.8-7.7); NEUTROPHILS % (AUTO) 70.1 % (40.0-70.0); PLATELET COUNT (AUTO) 214 K/uL (150-450); RED BLOOD CELL COUNT(AUTO) 5.33 MIL/uL (4.50-5.90); RED CELL DISTRIBUTION WIDTH 20.4 % (11.5-14.5); WHITE BLOOD COUNT (AUTO) 14.1 K/uL (4.5-11.0)
[2024-04-22 08:52] LABS: ANION GAP 4 mmol/L (8-16); CALCIUM, TOTAL 8.7 mg/dL (8.8-10.5); CARBON DIOXIDE 36 mmol/L (22-29); CHLORIDE 107 mmol/L (98-107); CREATININE 1.09 mg/dL (0.60-1.30); GLOMERULAR FILTR. RATE CALC > 60 mL/min (>60); GLUCOSE,RANDOM 93 mg/dL (70-110); SODIUM SERUM 147 mmol/L (136-145); UREA NITROGEN, BLOOD 19 mg/dL (7-18)
[2024-04-22 08:56] LABS: PROTHROMBIN TIME 10.9 SEC (9.4-11.6)
[2024-04-22] MEDS ORDERED: DEXTROSE 5%-WATER 1,000 ML IV SCH (13:00)
[2024-04-22] MEDS ORDERED: PANTOPRAZOLE SODIUM 40 MG/VIAL IVP SCH (13:00)
[2024-04-22] MEDS ORDERED: ChlorproMAZINE HCL 50 MG/2 ML AMP IM ONE (13:00)
== END 2024-04-22 08:36 | disposition short-term general hospital (02) | DRG 885 ==
LOC: 3EX 03-23 01:16 → UNDOADMIN 03-23 01:16 → 3EX 03-24 18:36
PROVIDERS: ADMIT Psychiatry & Neurology Child & Adolescent Psychiatry; ATTEND Psychiatry & Neurology Child & Adolescent Psychiatry
PROC: GZ56ZZZ Individual Psychotherapy, Supportive (ICD-10-PCS; principal; 2024-03-23)
PROC: GZ52ZZZ Individual Psychotherapy, Cognitive (ICD-10-PCS; 2024-03-23)
PROC: GZHZZZZ Group Psychotherapy (ICD-10-PCS; 2024-03-23)
DX: F20.0 Paranoid schizophrenia (principal); I10 Essential (primary) hypertension; E78.5 Hyperlipidemia, unspecified; D64.9 Anemia, unspecified; Z79.899 Other long term (current) drug therapy
CPT/HCPCS: 80048; 80053; 80061; 80164; 82962; 83036; 85025; 85610; 87481; 92610; 97162; 97530; G0378

== ENCOUNTER 2024-04-22 09:30 | Inpatient (IN) | payer MEDICARE, MEDICAID ==
[~2024-04-22 09:30] MED LIST changes: +ACET-2247 PO; +ARIP5TAB37 PO; +BISA10SU11 PR; +MAGN-169 PO; +PANT-31 PO; +ZOLP-280 PO
[2024-04-22] MEDS ORDERED: ONDANSETRON HCL 4 MG/2 ML VIAL IVP PRN (13:30)
[2024-04-22] MEDS: DEXTROSE 5%-0.9% SODIUM CHL 1,000 ML IV ONE (13:30)
[2024-04-22] MEDS ORDERED: ACETAMINOPHEN 325 MG TABLET PO PRN ×2 (13:30→14:15)
[2024-04-22] MEDS ORDERED: HALOPERIDOL 5 MG TABLET PO PRN (14:15)
[2024-04-22] MEDS ORDERED: ZOLPIDEM TARTRATE 5 MG TABLET PO PRN (14:15)
[2024-04-22] MEDS ORDERED: LORazepam 1 MG TABLET PO PRN (14:15)
[2024-04-22] MEDS: CALCIUM CARBONATE 500 MG CHEWABLE TABLET CHEW SCH (16:00)
[2024-04-22] MEDS: VALPROIC ACID 250 MG CAPSULE PO SCH (16:00)
[2024-04-22 16:26] VITALS: BP 139/88; PULSE 91; RESP 18; TEMP 98; O2SAT 97
[2024-04-22] MEDS: ChlorproMAZINE HCL 50 MG/2 ML AMP IM ONE (16:31)
[2024-04-22] MEDS: ONDANSETRON HCL 4 MG/2 ML VIAL IVP SCH (16:31)
[2024-04-22] MEDS: PANTOPRAZOLE SODIUM 40 MG/VIAL IVP SCH (16:31)
[2024-04-22] MEDS: CefTRIAXone 1 GM/DEXTROSE 50 ML IV SCH (17:01)
[2024-04-22 17:09] LABS: LACTIC ACID 0.7 mmol/L (0.4-2.0)
[2024-04-22 18:38] VITALS: BP 134/87; PULSE 84; RESP 17; TEMP 98.3; O2SAT 0
[2024-04-22 19:51] VITALS: BP 120/82; PULSE 82; RESP 19; TEMP 98; O2SAT 96
[2024-04-22] MEDS: DOCUSATE SODIUM 100 MG CAPSULE PO SCH (21:00)
[2024-04-22] MEDS: ARIPiprazole 5 MG TABLET PO SCH (21:00)
[2024-04-22] MEDS: TAMSULOSIN HCL 0.4 MG CAPSULE PO SCH (21:00)
[2024-04-22 21:02] LABS: BASOPHILS % (AUTO) 0.3 % (0.0-2.0); EOSINOPHILS % (AUTO) 0.8 % (1.0-6.0); HEMATOCRIT 42.1 % (41-53); HEMOGLOBIN 13.6 g/dL (13.5-17.5); LYMPHOCYTES # (AUTO) 2.1 K/uL (1.0-4.8); LYMPHOCYTES % (AUTO) 22.4 % (22.0-44.0); MEAN CORPUSCULAR HEMOGLOBIN 28.7 pg (26.0-34.0); MEAN CORPUSCULAR HGB CONC 32.3 G/dL (31.0-37.0); MEAN CORPUSCULAR VOLUME 89 fL (80-100); MONOCYTES # (AUTO) 1.2 K/uL (0.1-1.0); MONOCYTES % (AUTO) 12.8 % (2.0-9.0); NEUTROPHILS % (AUTO) 63.7 % (40.0-70.0); PLATELET COUNT (AUTO) 182 K/uL (150-450); RED BLOOD CELL COUNT(AUTO) 4.75 MIL/uL (4.50-5.90); RED CELL DISTRIBUTION WIDTH 20.5 % (11.5-14.5); WHITE BLOOD COUNT (AUTO) 9.5 K/uL (4.5-11.0)
[2024-04-22 21:15] LABS: CALCIUM, TOTAL 7.9 mg/dL (8.8-10.5); CREATININE 1.22 mg/dL (0.60-1.30); POTASSIUM 4.2 mmol/L (3.5-5.1)
[2024-04-22 21:18] LABS: ALBUMIN 2.5 g/dL (3.4-5.0); BILIRUBIN,TOTAL 0.2 mg/dL (0.1-1.0); TOTAL PROTEIN, SERUM 5.7 g/dL (6.4-8.2)
[2024-04-22 22:00] LABS: APPEARANCE,URINE HAZY (CLEAR); BILIRUBIN,URINE NEGATIVE (NEGATIVE); COLOR,URINE YELLOW (YELLOW); GLUCOSE, URINE (UA) 150-200 mg/dL (NEGATIVE); LEUKOCYTE ESTERASE ,URINE NEGATIVE (NEGATIVE); NITRATE,URINE NEGATIVE (NEGATIVE); OCCULT BLOOD,URINE NEGATIVE (NEGATIVE); PH,URINE 6.5 (5.0-8.0); PROTEIN,URINE 30-70 mg/dL (NEGATIVE); SPECIFIC GRAVITIY, URINE 1.041 (1.003-1.030); UROBILINOGEN,URINE <=1.0 mg/dL (<=1.0)
[2024-04-22 22:10] LABS: BACTERIA,URINE Few /HPF (None Seen); RBC,URINE 0-2 /HPF (0-2); WBC,URINE 0-2 /HPF (0-5)
[2024-04-22 22:11] LABS: CALCIUM OXALATE CRYSTALS,UR Many /LPF (None Seen); SQUAMOUS EPITHELIAL CELL,UR Rare /LPF (None Seen)
[2024-04-22] MEDS ORDERED: DEXTROSE 50%-WATER 25 GM/50 ML SYRINGE IVP PRN (22:15)
[2024-04-22] MEDS ORDERED: INSULIN LISPRO 100 UNITS/ML SQ PRN (22:15)
[2024-04-23 00:12] VITALS: BP 113/61; PULSE 84; RESP 18; TEMP 98.4; O2SAT 96
[2024-04-23 00:30] LABS: GLUCOMETER DEV NAME(LOC) 5N.2C; GLUCOSE,POINT OF CARE 84 MG/DL (70-110)
[2024-04-23 04:19] VITALS: BP 134/77; PULSE 72; RESP 18; TEMP 98.1; O2SAT 96
[2024-04-23 06:11] LABS: GLUCOMETER DEV NAME(LOC) 5S.2D; GLUCOSE,POINT OF CARE 81 MG/DL (70-110)
[2024-04-23 06:57] LABS: BASOPHILS % (AUTO) 0.5 % (0.0-2.0); HEMOGLOBIN 13.8 g/dL (13.5-17.5); LYMPHOCYTES # (AUTO) 3.1 K/uL (1.0-4.8); LYMPHOCYTES % (AUTO) 28.5 % (22.0-44.0); MEAN CORPUSCULAR HEMOGLOBIN 29.8 pg (26.0-34.0); MEAN CORPUSCULAR HGB CONC 33.6 G/dL (31.0-37.0); MEAN CORPUSCULAR VOLUME 89 fL (80-100); MONOCYTES # (AUTO) 1.5 K/uL (0.1-1.0); MONOCYTES % (AUTO) 13.5 % (2.0-9.0); NEUTROPHILS # (AUTO) 5.9 K/uL (1.8-7.7); NEUTROPHILS % (AUTO) 54.5 % (40.0-70.0); PLATELET COUNT (AUTO) 192 K/uL (150-450); RED BLOOD CELL COUNT(AUTO) 4.63 MIL/uL (4.50-5.90); RED CELL DISTRIBUTION WIDTH 20.7 % (11.5-14.5); WHITE BLOOD COUNT (AUTO) 10.9 K/uL (4.5-11.0)
[2024-04-23] MEDS: FOLIC ACID 1 MG TABLET PO SCH (08:37)
[2024-04-23] MEDS: METOPROLOL SUCCINATE 25 MG ER TABLET PO SCH (08:37)
[2024-04-23] MEDS: THIAMINE 100 MG TABLET PO SCH (08:38)
[2024-04-23] MEDS: ATORVASTATIN CALCIUM 40 MG TABLET PO SCH (08:38)
[2024-04-23 08:50] VITALS: BP 112/76; PULSE 62; RESP 18; TEMP 97.6; O2SAT 96
[2024-04-23] MEDS: AmLODIPine BESYLATE 10 MG TABLET PO SCH (08:51)
[2024-04-23] MEDS ORDERED: PANTOPRAZOLE SODIUM 40 MG DR TABLET PO SCH (09:00)
[2024-04-23 12:00] VITALS: BP 118/74; PULSE 66; RESP 18; TEMP 98; O2SAT 94
[2024-04-23] MEDS ORDERED: PROPOFOL 1% 20 ML VIAL IVP ONE (12:00)
[2024-04-23] MEDS ORDERED: LIDOCAINE/PF 2% 5 ML VIAL IM ONE (12:00)
[2024-04-23 15:00] VITALS: BP 116/79; PULSE 84; RESP 18; TEMP 98; O2SAT 95
[2024-04-23] MEDS ORDERED: SODIUM CHLORIDE 0.9% 100 ML ONE (17:59)
[2024-04-23 19:37] VITALS: BP 121/83; PULSE 83; RESP 18; TEMP 98; O2SAT 98
[2024-04-23] MEDS: INSULIN GLARGINE,HUM.REC.ANLOG 100 UNITS/ML SQ SCH (21:00)
[2024-04-23] MEDS: HALOPERIDOL LACTATE 5 MG/ML VIAL IVP SCH (21:44)
[2024-04-24 00:23] VITALS: BP 133/79; PULSE 63; RESP 18; TEMP 97.7; O2SAT 100
[2024-04-24] MEDS: HALOPERIDOL LACTATE 5 MG/ML VIAL IVP PRN (02:21)
[2024-04-24 03:11] VITALS: BP 125/80; PULSE 63; RESP 17; TEMP 98.2; O2SAT 99
[2024-04-24 08:12] VITALS: BP 117/68; PULSE 64; RESP 18; TEMP 98; O2SAT 98
[2024-04-24] MEDS: HALOPERIDOL LACTATE 5 MG/ML VIAL IVP SCH (09:03)
[2024-04-24 09:11] LABS: GLUCOMETER DEV NAME(LOC) 5N.2C; GLUCOSE,POINT OF CARE 93 MG/DL (70-110)
[2024-04-24 11:32] VITALS: BP 131/65; PULSE 74; RESP 19; TEMP 97.6; O2SAT 97
[2024-04-24 16:11] VITALS: BP 118/80; PULSE 55; RESP 18; TEMP 97.2; O2SAT 98
[2024-04-24 19:11] LABS: GLUCOMETER DEV NAME(LOC) 5N.2C; GLUCOSE,POINT OF CARE 85 MG/DL (70-110)
[2024-04-24 19:11] LABS: GLUCOMETER DEV NAME(LOC) 5N.1D; GLUCOSE,POINT OF CARE 89 MG/DL (70-110)
[2024-04-24 20:21] VITALS: BP 130/81; PULSE 70; RESP 18; TEMP 98.1; O2SAT 95
[2024-04-25] MEDS: ONDANSETRON HCL 4 MG/2 ML VIAL IVP SCH (03:36)
[2024-04-25 04:16] LABS: GLUCOMETER DEV NAME(LOC) 5N.1D; GLUCOSE,POINT OF CARE 108 MG/DL (70-110)
[2024-04-25 05:48] VITALS: BP 142/97; PULSE 62; RESP 19; TEMP 98.6; O2SAT 95
[2024-04-25 06:03] VITALS: BP 143/89; PULSE 64; RESP 18; TEMP 98.1; O2SAT 95
[2024-04-25 08:29] VITALS: BP 130/87; PULSE 72; RESP 18; TEMP 98.4; O2SAT 98
[2024-04-25 14:11] LABS: GLUCOMETER DEV NAME(LOC) 6N.1B; GLUCOSE,POINT OF CARE 108 MG/DL (70-110)
[2024-04-25 20:20] LABS: GLUCOMETER DEV NAME(LOC) 6N.2B; GLUCOSE,POINT OF CARE 104 MG/DL (70-110)
[2024-04-26 04:14] VITALS: BP 146/97; PULSE 79; RESP 18; TEMP 98.4; O2SAT 95
[2024-04-26 07:05] LABS: GLUCOMETER DEV NAME(LOC) 6S.1D; GLUCOSE,POINT OF CARE 95 MG/DL (70-110)
[2024-04-26 07:50] VITALS: BP 127/76; PULSE 73; RESP 20; TEMP 98; O2SAT 94
[2024-04-26] MEDS ORDERED: SODIUM CHLORIDE 0.9% 1,000 ML ONE (16:11)
[2024-04-26 21:15] LABS: GLUCOMETER DEV NAME(LOC) 6N.2B; GLUCOSE,POINT OF CARE 90 MG/DL (70-110)
[2024-04-26 21:20] LABS: GLUCOMETER DEV NAME(LOC) 6N.1B; GLUCOSE,POINT OF CARE 110 MG/DL (70-110)
[2024-04-26] MEDS ORDERED: HALOPERIDOL LACTATE 5 MG/ML VIAL ONE (22:08)
[2024-04-26] MEDS: HALOPERIDOL LACTATE 5 MG/ML VIAL IM PRN (22:11)
[2024-04-27 05:22] VITALS: BP 120/79; PULSE 58; RESP 18; TEMP 97.6; O2SAT 96
[2024-04-27 06:35] LABS: GLUCOMETER DEV NAME(LOC) 6N.2B; GLUCOSE,POINT OF CARE 80 MG/DL (70-110)
[2024-04-27 07:38] VITALS: BP 111/73; PULSE 55; RESP 18; TEMP 98.1; O2SAT 97
[2024-04-27 11:50] LABS: GLUCOMETER DEV NAME(LOC) 6N.1B; GLUCOSE,POINT OF CARE 116 MG/DL (70-110)
[2024-04-27] MEDS: MAGNESIUM HYDROXIDE SUSPENSION 30 ML UDCUP PO PRN (11:54)
[2024-04-27] MEDS: BISACODYL 10 MG RECTAL RECTAL SUPPOSITORY PR PRN (13:46)
[2024-04-27] MEDS: LORazepam 2 MG/ML VIAL IVP PRN (14:10)
[2024-04-27] MEDS ORDERED: DOCU-385 PO (14:32)
[2024-04-27] MEDS ORDERED: FOLI0.4T6 PO (14:33)
[2024-04-27] MEDS ORDERED: INSLAN SQ (14:34)
[2024-04-27] MEDS ORDERED: THIA100T80 PO (14:36)
[2024-04-27] MEDS ORDERED: INSU100V SQ (14:39)
[2024-04-27] MEDS ORDERED: AMOX-457 PO (14:44)
[2024-04-27 17:00] VITALS: BP 120/52; PULSE 76; RESP 18; TEMP 98; O2SAT 95
[2024-04-27 17:30] LABS: GLUCOMETER DEV NAME(LOC) 6N.1B; GLUCOSE,POINT OF CARE 109 MG/DL (70-110)
[2024-04-30 10:30] LABS: GLUCOMETER DEV NAME(LOC) 5N.2C; GLUCOSE,POINT OF CARE 78 MG/DL (70-110)
[2024-04-30 10:30] LABS: GLUCOMETER DEV NAME(LOC) 6N.2B; GLUCOSE,POINT OF CARE 109 MG/DL (70-110)
[2024-04-30 10:30] LABS: GLUCOMETER DEV NAME(LOC) 5N.2C; GLUCOSE,POINT OF CARE 76 MG/DL (70-110)
[2024-04-30 10:30] LABS: GLUCOMETER DEV NAME(LOC) 5N.1D; GLUCOSE,POINT OF CARE 113 MG/DL (70-110)
== END 2024-04-27 17:27 | DRG 377 ==
LOC: 5S 09:30 → 6N 04-25 05:49 → 6S 04-26 11:09
PROVIDERS: ADMIT Internal Medicine; ATTEND Internal Medicine
PROC: 0DJ08ZZ Inspection of Upper Intestinal Tract, Via Natural or Artificial Opening Endoscopic (ICD-10-PCS; principal; 2024-04-23 16:05)
DX: K29.71 Gastritis, unspecified, with bleeding (principal); J15.69 Pneumonia due to other Gram-negative bacteria; R78.81 Bacteremia; K25.4 Chronic or unspecified gastric ulcer with hemorrhage; K29.81 Duodenitis with bleeding; N40.0 Benign prostatic hyperplasia without lower urinary tract symptoms; I95.9 Hypotension, unspecified; D64.9 Anemia, unspecified; B96.89 Other specified bacterial agents as the cause of diseases classified elsewhere; F20.9 Schizophrenia, unspecified; E11.9 Type 2 diabetes mellitus without complications; I11.0 Hypertensive heart disease with heart failure; I50.9 Heart failure, unspecified; E78.00 Pure hypercholesterolemia, unspecified; F10.20 Alcohol dependence, uncomplicated; Z79.899 Other long term (current) drug therapy; F99 Mental disorder, not otherwise specified
CPT/HCPCS: 80053; 81001; 82962; 83605; 83735; 85025; 87040; 87077; 87205; 92610; J0696; J1630; J1815; J2060; J2405; J2470; J2704; J3230; J3490; J7030; J7042; J7050